=== PATIENT | female | born 1995 | race Caucasian/White ===

== ENCOUNTER 2022-05-15 06:47 | Emergency (ER) | payer SELFPAY ==
[~2022-05-15] VITALS: Ht 157.5 cm; Wt 59.9 kg
--- NOTE | 2022-05-15 06:55 | NUR ---
ER Dr. Rivera at bedside examining patient.
[2022-05-15 06:56] VITALS: BP_SYST 121
--- NOTE | 2022-05-15 06:56 | NUR ---
Patient brought in by family law attorney in [facility], here for medical clearance before booking. Patient claims to use of methamphetamine 2 hours ago and fentanyl 12 hours ago. Patient states she is on withdrawal. Patient answers questions in full sentences however drowsy. Patient is breathing easy, not in distress. No other remarkable symptoms noted.
--- NOTE | 2022-05-15 07:05 | NUR ---
Patient medically cleared by ER MD and was given written and verbal discharge instructions and officer verbalizes understanding. ER MD discussed with patient the care provided. Patient in stable condition. No Rx of given. Patient educated on pain management and to follow up with PMD. Opportunity for questions provided and answered. Patient was accompanied by police records clerk to car in handcuffs.
== END 2022-05-15 07:05 ==
LOC: SED 06:47
DX: Z02.89 Encounter for other administrative examinations (principal); Z79.899 Other long term (current) drug therapy
CPT/HCPCS: 99283